=== PATIENT | female | born 1985 | race Asian ===

== ENCOUNTER 2016-12-22 11:25 | Day surgery (SDC) | payer OTHER ==
[~2016-12-22] VITALS: Ht 154.9 cm; Wt 69.8 kg
[2016-12-22] VITALS (10 sets, daily range): BP systolic 110–126; BP diastolic 59–76; PULSE 55–66; RESP 16–21; Ht 154.9 cm; Wt 69.8 kg
[~2016-12-22 11:25] MED LIST: ROCURONIUM 50 MG INJ ONE
[2016-12-22] MEDS ORDERED: LEVE750T70 PO (12:21)
[2016-12-22] MEDS ORDERED: OXCA600T3 PO (12:22)
[2016-12-22] MEDS ORDERED: PROPOFOL 20 ML ONE (14:26)
[2016-12-22] MEDS ORDERED: SUCCINYLCHOLINE CHLORIDE 100 MG/5 ML SYG IV ONE (14:26)
[2016-12-22] MEDS ORDERED: MEPERIDINE 100 MG INJ ONE (14:26)
[2016-12-22] MEDS ORDERED: LIDOCAINE 2% (SDV) 5 ML INJ ONE (14:26)
[2016-12-22] MEDS ORDERED: hydrALAzine 20 MG INJ IV PRN (14:30)
[2016-12-22] MEDS ORDERED: morphine (1 MG/ML) 10ML SYRINGE IV PRN ×2 (14:30)
[2016-12-22] MEDS ORDERED: HYDROmorphONE (0.2 MG/ML) 10ML SYG IV PRN ×2 (14:30)
[2016-12-22] MEDS ORDERED: METOCLOPRAMIDE 10 MG INJ IV PRN (14:30)
[2016-12-22] MEDS ORDERED: EPHEDrine SULFATE 50 MG/5 ML SYG IV PRN (14:30)
[2016-12-22] MEDS ORDERED: LABETALOL HCL 20MG INJ IV PRN (14:30)
[2016-12-22] MEDS ORDERED: MIDAZOLAM 1 MG/ML 2 ML INJ IV PRN (14:30)
[2016-12-22] MEDS ORDERED: ONDANSETRON 4 MG INJ IV PRN (14:30)
[2016-12-22] MEDS ORDERED: DIPHENHYDRAMINE 50 MG INJ IV PRN (14:30)
[2016-12-22] MEDS ORDERED: MEPERIDINE 25 MG INJ IV PRN (14:30)
[2016-12-22] MEDS ORDERED: CEFAZOLIN 1 GM INJ ONE (15:15)
[2016-12-22] MEDS ORDERED: METOCLOPRAMIDE 10 MG INJ ONE (15:16)
[2016-12-22] MEDS ORDERED: ONDANSETRON 4 MG INJ ONE (15:16)
[2016-12-22] MEDS ORDERED: BACITRACIN/POLYMYXIN 28.35 GM OINT TOP ONE (15:54)
--- NOTE | 2016-12-22 16:13 | OPR ---
Date/Time of Note Date/Time of Note DATE: 12/22/16 TIME: 16:09 Operative Report Procedure Date: Dec 22, 2016 Preoperative Diagnosis Left submandibular gland neoplasm. Postoperative Diagnosis Same Operation Performed Excision of left submandibular gland. Surgeon: MECHELLE SALINAS MD Anesthesia: general Estimated Blood Loss: 10 - 50 ml's Specimens Left SMG Complications: None Pt Condition Post Procedure: stable Disposition: PACU Indications Left SMG pleomorphic adenoma. Operative\Procedure Findings Superficial mass of left SMG, firm. Procedure Description Description of procedure: The patient was identified in the holding area. We had a discussion to confirm understanding of indications, risks, benefits, alternatives and postoperative care associated with the operation. Informed consent was signed. The patient was taken the operating room and placed supine on the operating table. General endotracheal anesthesia was achieved without difficulty. Facial, hypoglossal and spinal accessory nerve monitoring was performed throughout the duration of the case. A shoulder roll was placed. The neck was prepped and draped in normal sterile fashion. A 15 blade was used to make a horizontal incision in a preexisting cervical crease. Subplatysmal flaps were elevated circumferentially. The SMG facia was investigated to identify the marginal nerve. The nerve was dissected proximally and distally and the fascia containing it was dissected superiorly towards the mandibular body. The submandibular gland was the dissected free of the surrounding soft tissues. The digastric and mylohoid muscles were identified and dissected free. Ligation and transection of the facial artery and vein was performed withe the Ligasure small jaw. The 5th and 12th nerves were identified and dissected superiorly. The SMG gandlion was transected. The gland was freed from its final attachments and sent for evaluation by pathology. Irrigation and valsalva was performed. A 3-0 Vicryl was used to reapproximate the platysma in interrupted buried fashion. Running 4-0 Monocryl was used to reapproximate the skin. The patient tolerated the procedure well and was extubated, taken to PACU in stable condition. Complications: None MECHELLE SALINAS MD Dec 22, 2016 16:13
[2016-12-22] MEDS ORDERED: HYDROCODONE/APAP (5/325) TAB PO PRN (16:30)
== END 2016-12-22 17:48 | disposition home or self-care (01) ==
LOC: SDS 11:25
PROVIDERS: ATTEND Otolaryngology
DX: D11.9 Benign neoplasm of major salivary gland, unspecified (principal); D11.7 Benign neoplasm of other major salivary glands
CPT/HCPCS: 42440; 88307; J0690; J2175; J2405; J2765; J7999; Z7512; Z7610